=== PATIENT | female | born 1965 | race African-American/Black ===

== ENCOUNTER 2017-12-02 19:05 | Observation (INO) | payer MEDICARE ==
[2017-12-02] MEDS ORDERED: SODIUM CHLORIDE 0.9% 1,000 ML IV STA (20:20)
[2017-12-02] MEDS ORDERED: FAMOTIDINE 20 MG/2 ML VIAL IV STA (20:22)
--- NOTE | 2017-12-02 20:28 | ED ---
SOB HPI - General Chief Complaint: Shortness of Breath Stated Complaint: BLOODY STOOL, VOMITING, NAUSEA, NO EATING Time Seen by Provider: 12/02/17 20:10 Source: patient, RN notes reviewed Mode of arrival: wheelchair Limitations: no limitations - History of Present Illness Initial Comments: This is a 52-year-old female who states she short of breath she also stated bloating in her abdomen also black stools. She states she does drink a lot of beer at the age of [age] ounce beers per day he states she's feeling depressed. He denies a episodes of coughing up blood however. No vomiting. She is generally doesn't feel well. She states her urine also been very dark yellow. She has a history of hepatitis or pancreatitis MD Complaint: shortness of breath - Related Data Home Medications Medication Instructions Recorded Confirmed No Known Home Medications [No 12/02/17 12/02/17 Known Home Medications] Allergies Allergy/AdvReac Type Severity Reaction Status Date / Time ibuprofen [From Motrin] Allergy Rash/Hives Verified 12/02/17 20:53 aspirin AdvReac Unknown Verified 12/02/17 20:53 pantoprazole [From Protonix] AdvReac Unknown Verified 12/02/17 20:53 Review of Systems ROS Statement: Those systems with pertinent positive or pertinent negative responses have been documented in the HPI. ROS Other: All systems not noted in ROS Statement are negative. Past Medical History Past Medical History: Hypertension, Sleep Apnea/CPAP/BIPAP, Thyroid Disorder Additional Past Medical History / Comment(s): enlarged heart since , hypothyroid History of Any Multi-Drug Resistant Organisms: None Reported Past Surgical History: Hernia Repair Additional Past Surgical History / Comment(s): Abdominal hernia repair. Past Anesthesia/Blood Transfusion Reactions: No Reported Reaction Past Psychological History: Depression Smoking Status: Current every day smoker Past Alcohol Use History: Daily Past Drug Use History: None Reported - Past Family History Father Family Medical History: No Reported History, Thyroid Disorder Mother Family Medical History: Hypertension General Exam - General Exam Comments Initial Comments: This is a well-developed well-nourished awake alert oriented 3 female Limitations: no limitations General appearance: alert, in no apparent distress Head exam: Present: atraumatic, normocephalic, normal inspection Eye exam: Present: normal appearance, PERRL, EOMI. Absent: scleral icterus, conjunctival injection, periorbital swelling ENT exam: Present: mucous membranes dry Neck exam: Present: normal inspection. Absent: tenderness, meningismus, lymphadenopathy Respiratory exam: Present: normal lung sounds bilaterally. Absent: respiratory distress, wheezes, rales, rhonchi, stridor Cardiovascular Exam: Present: regular rate, normal rhythm, normal heart sounds. Absent: systolic murmur, diastolic murmur, rubs, gallop, clicks GI/Abdominal exam: Present: soft, distended, normal bowel sounds. Absent: tenderness, guarding, rebound, rigid, bruit, pulsatile mass, hernia Extremities exam: Present: normal inspection, full ROM, normal capillary refill. Absent: tenderness, pedal edema, joint swelling, calf tenderness Back exam: Present: normal inspection Neurological exam: Present: alert, oriented X3, CN II-XII intact Psychiatric exam: Present: normal affect, normal mood Skin exam: Present: warm, dry, intact, normal color. Absent: rash Course Vital Signs 12/02/17 12/02/17 12/02/17 19:22 21:58 23:22 Temperature 98.2 F Pulse Rate 98 85 90 Respiratory 22 16 20 Rate Blood Pressure 136/77 150/81 148/81 O2 Sat by Pulse 96 99 99 Oximetry - Reevaluation(s) Reevaluation #1: 12/03/17 00:05 Patient demonstrates several episodes of vomiting. She feels very shaky. Medical Decision Making - Medical Decision Making Patient is demonstrating evidence of alcohol withdrawal. She'll be admitted I did discuss the case with Dr. Mcgee - Lab Data Result diagrams: 12/02/17 20:15 12/02/17 20:15 Lab Results 12/02/17 12/02/17 12/02/17 Range/Units 20:15 20:15 20:15 WBC 3.6 L (3.8-10.6) k/uL RBC 4.98 (3.80-5.40) m/uL Hgb 15.3 D (11.4-16.0) gm/dL Hct 47.2 H (34.0-46.0) % MCV 94.9 (80.0-100.0) fL MCH 30.8 (25.0-35.0) pg MCHC 32.5 (31.0-37.0) g/dL RDW 16.6 H (11.5-15.5) % Plt Count 194 D (150-450) k/uL Neutrophils % 56 % Lymphocytes % 37 % Monocytes % 4 % Eosinophils % 0 % Basophils % 1 % Neutrophils # 2.0 (1.3-7.7) k/uL Lymphocytes # 1.4 (1.0-4.8) k/uL Monocytes # 0.2 (0-1.0) k/uL Eosinophils # 0.0 (0-0.7) k/uL Basophils # 0.0 (0-0.2) k/uL Anisocytosis Slight PT (9.0-12.0) sec INR (<1.2) APTT (22.0-30.0) sec Sodium (137-145) mmol/L Potassium (3.5-5.1) mmol/L Chloride (98-107) mmol/L Carbon Dioxide (22-30) mmol/L Anion Gap mmol/L BUN (7-17) mg/dL Creatinine (0.52-1.04) mg/dL Est GFR (MDRD) Af Amer (>60 ml/min/1.73 sqM) Est GFR (MDRD) Non-Af (>60 ml/min/1.73 sqM) Glucose (74-99) mg/dL Calcium (8.4-10.2) mg/dL Magnesium (1.6-2.3) mg/dL Total Bilirubin (0.2-1.3) mg/dL AST (14-36) U/L ALT (9-52) U/L Alkaline Phosphatase (38-126) U/L Total Creatine Kinase 322 H (30-135) U/L CK-MB (CK-2) 6.0 H* (0.0-2.4) ng/mL CK-MB (CK-2) Rel Index 1.9 Troponin I 0.014 (0.000-0.034) ng/mL NT-Pro-B Natriuret Pep pg/mL Total Protein (6.3-8.2) g/dL Albumin (3.5-5.0) g/dL Amylase (30-110) U/L Lipase (23-300) U/L Serum Alcohol mg/dL Blood Type B Positive Blood Type Recheck CABO Indicated Antibody Screen NEGATIVE Spec Expiration Date 12/05/2017 - 231412/02/17 12/02/17 12/02/17 Range/Units 20:15 20:15 20:15 WBC (3.8-10.6) k/uL RBC (3.80-5.40) m/uL Hgb (11.4-16.0) gm/dL Hct (34.0-46.0) % MCV (80.0-100.0) fL MCH (25.0-35.0) pg MCHC (31.0-37.0) g/dL RDW (11.5-15.5) % Plt Count (150-450) k/uL Neutrophils % % Lymphocytes % % Monocytes % % Eosinophils % % Basophils % % Neutrophils # (1.3-7.7) k/uL Lymphocytes # (1.0-4.8) k/uL Monocytes # (0-1.0) k/uL Eosinophils # (0-0.7) k/uL Basophils # (0-0.2) k/uL Anisocytosis PT 11.5 (9.0-12.0) sec INR 1.2 H (<1.2) APTT 25.1 (22.0-30.0) sec Sodium 138 (137-145) mmol/L Potassium 4.3 (3.5-5.1) mmol/L Chloride 102 (98-107) mmol/L Carbon Dioxide 20 L (22-30) mmol/L Anion Gap 16 mmol/L BUN 20 H (7-17) mg/dL Creatinine 1.00 (0.52-1.04) mg/dL Est GFR (MDRD) Af Amer >60 (>60 ml/min/1.73 sqM) Est GFR (MDRD) Non-Af 58 (>60 ml/min/1.73 sqM) Glucose 96 (74-99) mg/dL Calcium 9.2 (8.4-10.2) mg/dL Magnesium 2.2 (1.6-2.3) mg/dL Total Bilirubin 0.7 (0.2-1.3) mg/dL AST 62 H (14-36) U/L ALT 36 (9-52) U/L Alkaline Phosphatase 139 H (38-126) U/L Total Creatine Kinase (30-135) U/L CK-MB (CK-2) (0.0-2.4) ng/mL CK-MB (CK-2) Rel Index Troponin I (0.000-0.034) ng/mL NT-Pro-B Natriuret Pep 87 pg/mL Total Protein 8.0 (6.3-8.2) g/dL Albumin 4.1 (3.5-5.0) g/dL Amylase 35 (30-110) U/L Lipase 155 (23-300) U/L Serum Alcohol mg/dL Blood Type Blood Type Recheck Antibody Screen Spec Expiration Date 12/02/17 Range/Units 21:41 WBC (3.8-10.6) k/uL RBC (3.80-5.40) m/uL Hgb (11.4-16.0) gm/dL Hct (34.0-46.0) % MCV (80.0-100.0) fL MCH (25.0-35.0) pg MCHC (31.0-37.0) g/dL RDW (11.5-15.5) % Plt Count (150-450) k/uL Neutrophils % % Lymphocytes % % Monocytes % % Eosinophils % % Basophils % % Neutrophils # (1.3-7.7) k/uL Lymphocytes # (1.0-4.8) k/uL Monocytes # (0-1.0) k/uL Eosinophils # (0-0.7) k/uL Basophils # (0-0.2) k/uL Anisocytosis PT (9.0-12.0) sec INR (<1.2) APTT (22.0-30.0) sec Sodium (137-145) mmol/L Potassium (3.5-5.1) mmol/L Chloride (98-107) mmol/L Carbon Dioxide (22-30) mmol/L Anion Gap mmol/L BUN (7-17) mg/dL Creatinine (0.52-1.04) mg/dL Est GFR (MDRD) Af Amer (>60 ml/min/1.73 sqM) Est GFR (MDRD) Non-Af (>60 ml/min/1.73 sqM) Glucose (74-99) mg/dL Calcium (8.4-10.2) mg/dL Magnesium (1.6-2.3) mg/dL Total Bilirubin (0.2-1.3) mg/dL AST (14-36) U/L ALT (9-52) U/L Alkaline Phosphatase (38-126) U/L Total Creatine Kinase (30-135) U/L CK-MB (CK-2) (0.0-2.4) ng/mL CK-MB (CK-2) Rel Index Troponin I (0.000-0.034) ng/mL NT-Pro-B Natriuret Pep pg/mL Total Protein (6.3-8.2) g/dL Albumin (3.5-5.0) g/dL Amylase (30-110) U/L Lipase (23-300) U/L Serum Alcohol 44 mg/dL Blood Type Blood Type Recheck Antibody Screen Spec Expiration Date - EKG Data -: EKG Interpreted by Me EKG shows normal: sinus rhythm (Sinus rhythm rate 89. Interval 1:30 QRS duration 82 QT since QTC of 370/[address]-T wave configuration possible left atrial enlargement) - Radiology Data Radiology results: report reviewed (I did review the imaging and reports no acute findings.), image reviewed Disposition Clinical Impression: Alcohol withdrawal, Intractable vomiting Disposition: ADMITTED IP TO THIS [facility] Condition: Stable Referrals: None,Stated [Primary Care Provider] - 1-2 days
[2017-12-02 20:59] LABS: Anisocytosis Slight; Basophils % (A) 1 %; Eosinophils % (A) 0 %; HCT 47.2 % (34.0-46.0); Lymphocytes # (A) 1.4 k/uL (1.0-4.8); Lymphocytes % (A) 37 %; MCH 30.8 pg (25.0-35.0); MCHC 32.5 g/dL (31.0-37.0); MCV 94.9 fL (80.0-100.0); Mean Platelet Volume 8.2; Monocytes # (A) 0.2 k/uL (0-1.0); Monocytes % (A) 4 %; Neutrophils % (A) 56 %; RBC 4.98 m/uL (3.80-5.40); RDW 16.6 % (11.5-15.5); WBC 3.6 k/uL (3.8-10.6)
[2017-12-02 21:01] LABS: HGB 15.3 gm/dL (11.4-16.0); Platelet Count 194 k/uL (150-450)
[2017-12-02 21:03] LABS: ALT 36 U/L (9-52); AST 62 U/L (14-36); Albumin 4.1 g/dL (3.5-5.0); Alkaline Phosphatase 139 U/L (38-126); Amylase 35 U/L (30-110); Anion Gap 16 mmol/L; Blood Urea Nitrogen 20 mg/dL (7-17); Calcium 9.2 mg/dL (8.4-10.2); Carbon Dioxide 20 mmol/L (22-30); Chloride 102 mmol/L (98-107); Glucose 96 mg/dL (74-99); Magnesium 2.2 mg/dL (1.6-2.3); Potassium 4.3 mmol/L (3.5-5.1); Sodium 138 mmol/L (137-145); Total Bilirubin 0.7 mg/dL (0.2-1.3)
[2017-12-02 21:04] LABS: INR 1.2 (<1.2); Partial Thromboplastin Time 25.1 sec (22.0-30.0); Prothrombin Time 11.5 sec (9.0-12.0)
--- NOTE | 2017-12-02 21:05 | XR ---
EXAMINATION TYPE: XR chest 2V DATE OF EXAM: 12/02/2017 COMPARISON: 10/05/2017 HISTORY: Difficulty breathing TECHNIQUE: Frontal and lateral views of the chest are obtained. FINDINGS: There is no heart failure nor confluent pneumonic infiltrate. Thoracic aorta is atheromato us. Costophrenic angles are clear. Bony thorax is intact. IMPRESSION: No active cardiopulmonary disease. No change.
[2017-12-02 21:10] LABS: Lipase 155 U/L (23-300)
[2017-12-02 21:31] LABS: Troponin I 0.014 ng/mL (0.000-0.034)
[2017-12-02] MEDS ORDERED: ONDANSETRON 4 MG/2 ML VIAL IVP STA (22:29)
[2017-12-03] MEDS ORDERED: ONDANSETRON 4 MG/2 ML VIAL IVP PRN (00:07)
[2017-12-03] MEDS ORDERED: NALOXONE 0.4 MG/ML 1 ML VIAL IV PRN (00:07)
[2017-12-03] MEDS ORDERED: THIAMINE 100 MG/ML 2 ML VIAL IM STA (00:09)
[2017-12-03 00:41] LABS: Anisocytosis Slight; HCT 44.7 % (34.0-46.0); HGB 14.5 gm/dL (11.4-16.0); MCH 30.9 pg (25.0-35.0); MCHC 32.5 g/dL (31.0-37.0); MCV 94.8 fL (80.0-100.0); Mean Platelet Volume 8.5; Platelet Count 185 k/uL (150-450); RBC 4.71 m/uL (3.80-5.40); RDW 16.8 % (11.5-15.5)
[2017-12-03 01:45] VITALS: BMI 29.9
[2017-12-03] MEDS: LORazepam 2 MG/ML INJ IV PRN ×5 (01:51→23:04)
[2017-12-03] MEDS: SODIUM CHLORIDE 0.9% 1,000 ML IV SCH (06:38)
--- NOTE | 2017-12-03 14:32 | HP ---
HISTORY AND PHYSICAL DATE OF ADMISSION: 12/03/17. CHIEF COMPLAINT: Chronic alcoholism and impending DTs. HISTORY OF PRESENT ILLNESS: This is the first known admission for this 52-year-old -Citizen Of [place] female. Presented to the emergency room intoxicated and was admitted for detox. She apparently is healthy otherwise. REVIEW OF SYSTEMS: She denies any headaches, diplopia, chest pain, shortness of breath, heart disease, hypertension, abdominal pain, liver disease, nausea, vomiting, diarrhea, melena, hematochezia, jaundice, hepatitis, cirrhosis, hematuria, frequency, urgency, arthralgias, diabetes, etc. Past medical history, family history, personal and social histories reveal that she has had a hernia procedure in the past, but no other surgery. She is not allergic to any medications and not taking any. She smokes daily. PHYSICAL EXAMINATION: Blood pressure is 155/88 with a pulse of 79, respirations of 36 and she is afebrile. In general she appeared to be acutely intoxicated. Head, ears, eyes, nose, mouth, and throat were normal. Pupils equal, round and gaze conjugate. Neck veins not distended. Chest is clear. Cardiac exam demonstrates sinus tachycardia. No murmurs or extra sounds. The abdomen is slightly protuberant, soft, nontender without visceromegaly or masses. Bowel sounds are present. Extremities normal. Neurologically she is intact. She is somewhat tremulous. IMPRESSION: She is admitted to the hospital with a diagnoses of: 1. Impending DTs. 2. Acute alcohol intoxication. 3. Chronic alcoholism. PLAN: 1. Bed rest. 2. IV fluids. 3. [facility] protocol. FIDENCIO / ILA: [id number] /
[2017-12-03] MEDS: THIAMINE 100 MG TAB PO SCH (18:00)
[2017-12-04] MEDS: LORazepam 2 MG/ML INJ IV PRN ×2 (06:42→12:34)
[2017-12-04] MEDS: SODIUM CHLORIDE 0.9% 1,000 ML IV SCH (08:01)
[2017-12-04 08:40] VITALS: BP 179/84; PULSE 103; RESP 18; TEMP 98.1
[2017-12-04] MEDS: THIAMINE 100 MG TAB PO SCH (12:33)
--- NOTE | 2017-12-05 19:08 | DS ---
DISCHARGE SUMMARY CHIEF COMPLAINT: Delirium tremens. HISTORY OF PRESENT ILLNESS AND PHYSICAL EXAM: Details of this lady's history and physical can be found in the initial workup. LABORATORY STUDIES: While she was in a hospital she had laboratory studies, details of which can be found in the laboratory section of her chart. COURSE IN HOSPITAL: After admission, she was placed in bedrest, started on intravenous fluids and placed on the CIWA protocol. She did well and she really did not meet the criteria. She was doing well and it was felt she could be discharged on the . She will go home on her usual diet, activity, and will be seen in the office in a day or two. FINAL DIAGNOSES: 1. Delirium tremens. 2. Alcoholism. OPERATIONS: None. CONSULTATIONS: None. She is improved. FIDENCIO / JOSE MANUELN: [id number] /
== END 2017-12-04 15:25 | disposition home or self-care (01) ==
LOC: EC 19:05 → 3OBS 12-03 00:10
PROVIDERS: ADMIT Family Medicine; ATTEND Family Medicine
DX: F10.221 Alcohol dependence with intoxication delirium (principal); Y90.2 Blood alcohol level of 40-59 mg/100 ml; F17.200 Nicotine dependence, unspecified, uncomplicated; Z82.49 Family history of ischemic heart disease and other diseases of the circulatory system; Z99.89 Dependence on other enabling machines and devices; G47.30 Sleep apnea, unspecified; Z88.6 Allergy status to analgesic agent; Z88.8 Allergy status to other drugs, medicaments and biological substances
CPT/HCPCS: 96361 ×8; 96372 ×2; 96374 ×2; 96375 ×3; 96376 ×2; 99285; 36415; 93005; 86900; 86901; 83880; 80053; 82150; 82550; 82553; 83690; 83735; 84484; 85025; 85027; 85610; 85730; 86850; 80320; 71046; G0378 ×2; J2060 ×2; J3411; J2405

== ENCOUNTER 2017-12-26 07:11 | Emergency (ER) | payer MEDICARE, OTHER ==
[2017-12-26] MEDS ORDERED: FAMOTIDINE 20 MG/2 ML VIAL IV STA (07:38)
[2017-12-26] MEDS ORDERED: SODIUM CHLORIDE 0.9% 1,000 ML with MVI, ADULT NO.4 WITH VIT K 10 ML, THIAMINE 100 MG, F... IV ONE ×4 (07:39)
[2017-12-26] MEDS ORDERED: SODIUM CHLORIDE 0.9% 2,000 ML IV ONE (07:39)
--- NOTE | 2017-12-26 07:42 | ED ---
General Adult HPI - General Chief complaint: Alcohol Stated complaint: Fall Time Seen by Provider: 12/26/17 07:15 Source: patient, EMS, RN notes reviewed Mode of arrival: EMS Limitations: no limitations - History of Present Illness Initial comments: 52-year-old female presents emergency department via EMS with multiple complaints. Patient reportedly states that she's been drinking alcohol heavily for last few weeks. She does have a history of alcohol abuse. Patient states that she woke today and had some blood in her mouth and on the pillow. She states is only a small amount. Patient did admit to having some black stools a few days ago was had normal bowel movement her son's. She complains of mild diffuse abdominal pain. She has no history of GI bleed no history of gastric ulcers or gastritis. Patient states that she's been unable to eat any food that she's been drinking alcohol daily. She states she did not drink this morning but she drank heavily last night. Patient denies chest pain, shortness breath, headache or dizziness. Patient denies any neck or back pain. Patient states she's been so weak that she's been falling over. Denies any major trauma from her falls. - Related Data Home Medications Medication Instructions Recorded Confirmed No Known Home Medications [No 12/02/17 12/26/17 Known Home Medications] Allergies Allergy/AdvReac Type Severity Reaction Status Date / Time ibuprofen [From Motrin] Allergy Rash/Hives Verified 12/26/17 08:18 aspirin AdvReac Unknown Verified 12/26/17 08:18 pantoprazole [From Protonix] AdvReac Unknown Verified 12/26/17 08:18 Review of Systems ROS Statement: Those systems with pertinent positive or pertinent negative responses have been documented in the HPI. ROS Other: All systems not noted in ROS Statement are negative. Past Medical History Past Medical History: Hypertension, Liver Disease, Sleep Apnea/CPAP/BIPAP, Thyroid Disorder Additional Past Medical History / Comment(s): enlarged heart since , hypothyroid, elevated liver function tests History of Any Multi-Drug Resistant Organisms: None Reported Past Surgical History: Hernia Repair Additional Past Surgical History / Comment(s): Abdominal hernia repair. Past Anesthesia/Blood Transfusion Reactions: No Reported Reaction Past Psychological History: Depression Smoking Status: Current every day smoker Past Alcohol Use History: Daily Past Drug Use History: None Reported - Past Family History Father Family Medical History: No Reported History, Thyroid Disorder Mother Family Medical History: Hypertension General Exam Limitations: no limitations General appearance: alert, in no apparent distress Head exam: Present: atraumatic, normocephalic, normal inspection Eye exam: Present: normal appearance, PERRL, EOMI. Absent: scleral icterus, conjunctival injection, periorbital swelling ENT exam: Present: normal exam, normal oropharynx, mucous membranes moist Neck exam: Present: normal inspection, full ROM. Absent: tenderness, meningismus, lymphadenopathy Respiratory exam: Present: normal lung sounds bilaterally. Absent: respiratory distress, wheezes, rales, rhonchi, stridor Cardiovascular Exam: Present: regular rate, normal rhythm, normal heart sounds. Absent: systolic murmur, diastolic murmur, rubs, gallop, clicks GI/Abdominal exam: Present: soft, tenderness (Mild diffuse), normal bowel sounds. Absent: distended, guarding, rebound, rigid Back exam: Absent: CVA tenderness (R), CVA tenderness (L) Neurological exam: Present: alert, oriented X3, CN II-XII intact Skin exam: Present: warm, dry, intact, normal color. Absent: rash Course Vital Signs 12/26/17 12/26/17 07:14 09:38 Temperature 98.0 F Pulse Rate 63 69 Respiratory 17 18 Rate Blood Pressure 103/59 131/66 O2 Sat by Pulse 98 100 Oximetry Medical Decision Making - Medical Decision Making 52-year-old female presents department for multiple complaints. Patient was intoxicated. Patient is awake alert and orientated history of this time she has a steady gait she is able to ambulate in the emergency department. Patient was found to be dehydrated causing minimal acute kidney injury. Patient was well-hydrated emergency department. She does have an elevation of her liver functions related to her alcoholic drinking. She is advised to stop drinking alcohol follow-up with on-call synonymous. Patient has no withdrawal symptoms at this time. Patient advised that she has leukopenia she is to follow-up for recheck. Return parameters were discussed. - Lab Data Result diagrams: 12/26/17 07:45 12/26/17 07:45 Lab Results 12/26/17 12/26/17 12/26/17 Range/Units 07:45 07:45 07:45 WBC 2.2 L (3.8-10.6) k/uL RBC 4.61 (3.80-5.40) m/uL Hgb 14.4 (11.4-16.0) gm/dL Hct 42.8 (34.0-46.0) % MCV 92.8 (80.0-100.0) fL MCH 31.2 (25.0-35.0) pg MCHC 33.6 (31.0-37.0) g/dL RDW 16.7 H (11.5-15.5) % Plt Count 169 (150-450) k/uL Neutrophils % (Manual) 35 % Lymphocytes % (Manual) 57 % Monocytes % (Manual) 6 % Eosinophils % (Manual) 2 % Neutrophils # (Manual) 0.77 L (1.3-7.7) k/uL Lymphocytes # (Manual) 1.25 (1.0-4.8) k/uL Monocytes # (Manual) 0.13 (0-1.0) k/uL Eosinophils # (Manual) 0.04 (0-0.7) k/uL Nucleated RBCs 0 (0-0) /100 WBC Manual Slide Review Performed Anisocytosis Slight PT 13.5 H (9.0-12.0) sec INR 1.4 H (<1.2) APTT 27.8 (22.0-30.0) sec Sodium 136 L (137-145) mmol/L Potassium 4.7 (3.5-5.1) mmol/L Chloride 104 (98-107) mmol/L Carbon Dioxide 20 L (22-30) mmol/L Anion Gap 12 mmol/L BUN 23 H (7-17) mg/dL Creatinine 1.24 H (0.52-1.04) mg/dL Est GFR (CKD-EPI)AfAm 57 (>60 ml/min/1.73 sqM) Est GFR (CKD-EPI)NonAf 49 (>60 ml/min/1.73 sqM) Glucose 132 H (74-99) mg/dL Calcium 9.0 (8.4-10.2) mg/dL Magnesium 2.1 (1.6-2.3) mg/dL Total Bilirubin 1.1 (0.2-1.3) mg/dL AST 525 H (14-36) U/L ALT 205 H (9-52) U/L Alkaline Phosphatase 114 (38-126) U/L Total Protein 6.8 (6.3-8.2) g/dL Albumin 3.4 L (3.5-5.0) g/dL Amylase 31 (30-110) U/L Lipase 153 (23-300) U/L Urine Color Urine Appearance (Clear) Urine pH (5.0-8.0) Ur Specific [place] (1.001-1.035) Urine Protein (Negative) Urine Glucose (UA) (Negative) Urine Ketones (Negative) Urine Blood (Negative) Urine Nitrite (Negative) Urine Bilirubin (Negative) Urine Urobilinogen (<2.0) mg/dL Ur Leukocyte Esterase (Negative) Serum Alcohol 165 mg/dL 12/26/17 Range/Units 08:00 WBC (3.8-10.6) k/uL RBC (3.80-5.40) m/uL Hgb (11.4-16.0) gm/dL Hct (34.0-46.0) % MCV (80.0-100.0) fL MCH (25.0-35.0) pg MCHC (31.0-37.0) g/dL RDW (11.5-15.5) % Plt Count (150-450) k/uL Neutrophils % (Manual) % Lymphocytes % (Manual) % Monocytes % (Manual) % Eosinophils % (Manual) % Neutrophils # (Manual) (1.3-7.7) k/uL Lymphocytes # (Manual) (1.0-4.8) k/uL Monocytes # (Manual) (0-1.0) k/uL Eosinophils # (Manual) (0-0.7) k/uL Nucleated RBCs (0-0) /100 WBC Manual Slide Review Anisocytosis PT (9.0-12.0) sec INR (<1.2) APTT (22.0-30.0) sec Sodium (137-145) mmol/L Potassium (3.5-5.1) mmol/L Chloride (98-107) mmol/L Carbon Dioxide (22-30) mmol/L Anion Gap mmol/L BUN (7-17) mg/dL Creatinine (0.52-1.04) mg/dL Est GFR (CKD-EPI)AfAm (>60 ml/min/1.73 sqM) Est GFR (CKD-EPI)NonAf (>60 ml/min/1.73 sqM) Glucose (74-99) mg/dL Calcium (8.4-10.2) mg/dL Magnesium (1.6-2.3) mg/dL Total Bilirubin (0.2-1.3) mg/dL AST (14-36) U/L ALT (9-52) U/L Alkaline Phosphatase (38-126) U/L Total Protein (6.3-8.2) g/dL Albumin (3.5-5.0) g/dL Amylase (30-110) U/L Lipase (23-300) U/L Urine Color Yellow Urine Appearance Clear (Clear) Urine pH 5.0 (5.0-8.0) Ur Specific [place] 1.012 (1.001-1.035) Urine Protein Negative (Negative) Urine Glucose (UA) Negative (Negative) Urine Ketones Negative (Negative) Urine Blood Negative (Negative) Urine Nitrite Negative (Negative) Urine Bilirubin Negative (Negative) Urine Urobilinogen <2.0 (<2.0) mg/dL Ur Leukocyte Esterase Negative (Negative) Serum Alcohol mg/dL Disposition Clinical Impression: Alcoholic intoxication, Alcoholic hepatitis, ETOH abuse, Dehydration, Leukopenia Disposition: HOME SELF-CARE Condition: Stable Instructions: Alcohol Intoxication (ED) Additional Instructions: Please follow up for repeat lab test. Please return to the Emergency Department if symptoms worsen or any other concerns. Referrals: None,Stated [Primary Care Provider] - 1-2 days Thu Stanley MD [STAFF PHYSICIAN] - 1-2 days Time of Disposition: 11:19
[2017-12-26 08:11] LABS: Anisocytosis Slight; HCT 42.8 % (34.0-46.0); HGB 14.4 gm/dL (11.4-16.0); MCH 31.2 pg (25.0-35.0); MCHC 33.6 g/dL (31.0-37.0); MCV 92.8 fL (80.0-100.0); Mean Platelet Volume 8.5; Platelet Count 169 k/uL (150-450); RBC 4.61 m/uL (3.80-5.40); RDW 16.7 % (11.5-15.5); WBC 2.2 k/uL (3.8-10.6)
[2017-12-26 08:17] LABS: INR 1.4 (<1.2); Partial Thromboplastin Time 27.8 sec (22.0-30.0); Prothrombin Time 13.5 sec (9.0-12.0)
[2017-12-26 08:26] LABS: Albumin 3.4 g/dL (3.5-5.0); Magnesium 2.1 mg/dL (1.6-2.3); Potassium 4.7 mmol/L (3.5-5.1); Total Bilirubin 1.1 mg/dL (0.2-1.3); Total Protein 6.8 g/dL (6.3-8.2)
[2017-12-26 08:41] LABS: Eosinophils # (M) 0.04 k/uL (0-0.7); Lymphocytes # (M) 1.25 k/uL (1.0-4.8); Monocytes # (M) 0.13 k/uL (0-1.0); Neutrophils # (M) 0.77 k/uL (1.3-7.7); Neutrophils % (M) 35 %; Nucleated Red Blood Cells 0 /100 WBC (0-0); Total Cells Counted 100
--- NOTE | 2017-12-26 09:47 | US ---
EXAMINATION TYPE: US abdomen limited DATE OF EXAM: 12/26/2017 COMPARISON: NONE CLINICAL HISTORY: Pain. ETOH, patient fell today but has abd pain x 2 days EXAM MEASUREMENTS: Liver Length: 20.5 cm Gallbladder Wall: 0.2 cm CBD: 0.5 cm Right Kidney: 9.9 x 4.9 x 4.4 cm Pancreas: wnl Liver: difficult to penetrate and enlarged. Hepatic echogenicity is hyperechoic with diminished visu alization of the portal triads, most commonly related to hepatic steatosis. This finding limits evalu ation for underlying hepatic masses. Gallbladder: appearance of mobile sludge seen Evidence for sonographic Velasco's sign: no CBD: wnl Right Kidney: wnl IMPRESSION: 1. No sonographic evidence of cholelithiasis or acute cholecystitis. Small amount of mobile biliary s ludge. 2. Findings most compatible with hepatic steatosis although other hepatocellular diseases are possibl e. Correlate with LFTs.
[2017-12-26 11:13] LABS: Appearance,Urine Clear (Clear); Bilirubin,Urine Negative (Negative); Blood,Urine Negative (Negative); Color,Urine Yellow; Glucose,Urine (UA) Negative (Negative); Ketones,Urine Negative (Negative); Leukocyte Esterase,Urine Negative (Negative); Nitrite,Urine Negative (Negative); Protein,Urine Negative (Negative); Specific Gravity,Urine 1.012 (1.001-1.035); Urobilinogen,Urine <2.0 mg/dL (<2.0)
[2017-12-26 11:55] VITALS: BP 141/86; PULSE 76; RESP 16; TEMP 97.7
== END 2017-12-26 11:57 | disposition home or self-care (01) ==
LOC: EC 07:11
DX: K70.10 Alcoholic hepatitis without ascites (principal); F10.129 Alcohol abuse with intoxication, unspecified; E86.0 Dehydration; D72.819 Decreased white blood cell count, unspecified; N17.9 Acute kidney failure, unspecified; R19.5 Other fecal abnormalities; F17.200 Nicotine dependence, unspecified, uncomplicated; Z88.6 Allergy status to analgesic agent; Z88.8 Allergy status to other drugs, medicaments and biological substances
CPT/HCPCS: 36415; 80053; 82150; 83690; 83735; 85025; 85610; 85730; 81003; 80320; 76705; 99284; 96365; 96366 ×3; 96375; 96361 ×2; J3411